=== PATIENT | male | born 1965 | race Two or more races ===

== ENCOUNTER 2024-09-29 20:55 | Emergency (ER) | payer OTHER ==
[~2024-09-29] VITALS: Ht 177.8 cm; Wt 81.6 kg
[2024-09-29] MEDS ORDERED: CHILDREN'S ASPI81 MG (21:04)
[2024-09-29] MEDS ORDERED: VALSARTAN40 MG (21:04)
[2024-09-29] MEDS ORDERED: KETOROLAC TROMETHAMINE 60 MG VIAL IM ONE (21:45)
[2024-09-29 22:27] LABS: PH,URINE 5.5 (5.0-8.0); URINE APPEARANCE Clear; URINE BILIRRUBIN Negative (NEGATIVE); URINE BLOOD Negative; URINE COLOR Yellow; URINE GLUCOSE Negative (NEGATIVE); URINE KETONE Negative (NEGATIVE); URINE LEUKOCYTE Trace; URINE NITRATE Negative; URINE PROTEIN Negative (NEGATIVE); URINE UROBILINOGEN 0.2 E.U./dl
[2024-09-29 22:28] LABS: URINE BACTERIA 8.5 uL (0.0-1933); URINE WBC 8.8 uL (0.0-23.2)
[2024-09-29 22:29] LABS: URINE EPITHELIAL CELLS 0.7 uL (0.0-38.8)
[2024-09-29 23:26] LABS: HEMATOCRIT 44.5 % (39.0-48.0); HEMOGLOBIN 15.4 g/dL (13-16.00); MEAN CELL VOLUME 80.8 fL (80.0-100.00); MEAN CORPUSCULAR HEMOGLOBIN 27.9 pg (27.00-32.0); MEAN CORPUSCULAR HGB CONC 34.5 g/dl (32.0-36.0); PLATELET COUNT 223 K/uL (150-450); RED BLOOD COUNT 5.51 M/uL (4.00-6.00); RED CELL DISTRIBUTION WIDTH 14.6 % (11.5-14.5)
[2024-09-29 23:43] LABS: ALBUMIN 3.9 gm/dL (3.4-5.0); BILIRUBIN TOTAL 1.05 mg/dL (0.3-1.2); CALCIUM 9.3 mg/dL (8.5-10.1); GFR 55.9; GLOBULINA 3.8 G/DL (2.4-3.5); POTASSIUM 4.64 mEq/L (3.5-5.1); TOTAL PROTEIN 7.7 gm/dL (6.4-8.2)
[2024-09-29] MEDS ORDERED: CIPRO500 MG PO (23:44)
[2024-09-29] MEDS ORDERED: PEPCID AC20 MG PO (23:44)
[2024-09-29] MEDS ORDERED: METRONIDAZOLE500 MG PO (23:44)
[2024-09-29 23:53] LABS: CREATININE SERUM 1.32 mg/dL (0.70-1.30)
== END 2024-09-29 23:50 | disposition home or self-care (01) ==
LOC: ER 20:58
PROVIDERS: General Practice
DX: K57.32 Diverticulitis of large intestine without perforation or abscess without bleeding (principal); R10.32 Left lower quadrant pain; Z91.013 Allergy to seafood; Z91.041 Radiographic dye allergy status; I10 Essential (primary) hypertension; Z95.1 Presence of aortocoronary bypass graft